=== PATIENT | male | born 1995 | race Caucasian/White ===

== ENCOUNTER 2019-02-13 21:43 | Emergency (ER) | payer SELFPAY ==
[~2019-02-13] VITALS: Ht 185.4 cm; Wt 91.0 kg
[2019-02-13] MEDS ORDERED: LIDOCAINE HCL/PF 1% 10 MG/ML 5ML VIAL IJ ONE (22:30)
[2019-02-14 06:00] VITALS: BP 106/68
== END 2019-02-14 06:51 | disposition home or self-care (01) ==
LOC: ER 21:43
DX: S51.812A Laceration without foreign body of left forearm, initial encounter (principal); F10.129 Alcohol abuse with intoxication, unspecified; Y90.0 Blood alcohol level of less than 20 mg/100 ml; W26.0XXA Contact with knife, initial encounter; Y93.89 Activity, other specified; Y92.89 Other specified places as the place of occurrence of the external cause; Y99.8 Other external cause status
CPT/HCPCS: 12004; 99283; J3490